=== PATIENT | male | born 1955 | race Caucasian/White ===

== ENCOUNTER 2020-02-20 09:26 | Emergency (ER) | payer OTHER, MEDICARE, BC ==
[2020-02-20] MEDS ORDERED: Ondansetron 4 MG/2 ML SDV IVPUSH ONE (09:44)
[2020-02-20] MEDS ORDERED: HYDROmorphone 1 MG/ML Syringe IVPUSH ONE ×2 (09:44→11:24)
[2020-02-20 09:45] VITALS: BP 146/82; PULSE 63
--- NOTE | 2020-02-20 10:33 | CR ---
PROCEDURE INFORMATION: Exam: XR Left Elbow Exam date and time: 02/20/2020 9:42 AM Age: 64 years old Clinical indication: Injury or trauma; Fall; Blunt trauma (contusions or hematomas); Elbow; Left; Injury date: 02/20/2020; Additional info: Fall off ladder TECHNIQUE: Imaging protocol: XR Left elbow. Views: 1 or 2 views. COMPARISON: No relevant prior studies available. FINDINGS: Bones/joints: There is a distracted intra-articular fracture involving the midportion of the olecranon. Irregular 9 mm ossific density at the radial head is compatible with a fracture. There is a 2.5 cm cranial caudal ossific density adjacent to the medial humeral epicondyle suspicious for large avulsive fracture fragment. Multiple intra-articular fragments identified. Soft tissues: Displaced anterior and posterior fat pads. Moderate soft tissue swelling in the olecranon bursa compatible with probable bursal hematoma or hemorrhage. IMPRESSION: 1. Complex series of fractures involving the midportion olecranon fracture, avulsive fractures identified at the radial head and lateral humeral epicondyle. 2. Intra-articular fracture fragments identified.
--- NOTE | 2020-02-20 10:38 | EDM.PDOC ---
<Chandler Owen - Last Filed: 02/20/20 12:23> ED HPI GENERAL MEDICAL PROBLEM - General Chief Complaint: Upper Extremity Injury/Pain Stated Complaint: FELL DOWN STAIRS AND LANDED ELBOW ON CONRETE Time Seen by Provider: 02/20/20 10:00 - Related Data Allergies Allergy/AdvReac Type Severity Reaction Status Date / Time No Known Allergies Allergy Verified 02/20/20 09:40 Home Meds: Home Meds Albuterol [Ventolin HFA] 2 puff INH BID 04/26/14 [History] Fluticasone/Salmeterol [Advair 250-50 Diskus] 2 puff INH BID 04/26/14 [History] Tiotropium [Spiriva] 2.5 mcg INH BID 04/26/14 [History] Albuterol [Proventil Neb Soln] 2.5 mg NEB Q6H PRN 09/07/15 [History] [id number] Inhibitor [Prolastin C] 1,000 mg IV WEEKLY 09/07/15 [History] Cholecalciferol (Vitamin D3) [Vitamin D3] 1,000 units PO DAILY 09/07/15 [History] LORazepam [Ativan] 1 mg PO DAILY 09/07/15 [History] Multivitamin [Multi-Vitamin Daily] 1 tab PO DAILY 09/07/15 [History] Course - Re-Assessments/Exams Free Text/Narrative Re-Assessment/Exam: 02/20/20 I personally performed or re-performed the physical examination and medical d ecision making. I have verified all student documentation or findings, including history, physical exam and/or medical decision making. Departure - Departure Disposition: Home, Self-Care 01 Clinical Impression: Closed fracture of radius and ulna Qualifiers: Encounter type: initial encounter Laterality: left Qualified Code(s): S52.92XA - Unspecified fracture of left forearm, initial encounter for closed fracture Rib fractures Qualifiers: Encounter type: initial encounter Rib fracture type: multiple ribs Fracture type: closed Laterality: left Qualified Code(s): S22.42XA - Multiple fractures of ribs, left side, initial encounter for closed fracture - Discharge Information Instructions: Acute Compartment Syndrome, Cast or Splint Care, Adult, [id number], Rib Fracture, Ulnar Fracture, Radial Head Fracture Forms: ED Department Discharge Additional Instructions: Call Dr. Cortes's office [phone] to schedule appointment for tomorrow 02/20. RX: Percocet 5/325 mg take one tab every 4 hours as needed for severe pain. Watch for symptoms of compartment syndrome as described in your instructions. Use your Incentive Spirometer every hour while awake. Included are a copy of your EKG, lab results, examination results, x-ray results, and a CD of your xray images. Give these to Dr. Burkett's office. <Ivory Donis - Last Filed: 02/20/20 13:29> ED HPI GENERAL MEDICAL PROBLEM - General Source of Information: Reports: Patient, RN, RN Notes Reviewed History Limitations: Reports: No Limitations - History of Present Illness INITIAL COMMENTS - FREE TEXT/NARRATIVE: pt was at work and carrying boxes up stairs, went to turn around and fell down 5 stair. obvious left elbow deformity, rates pain 9/10. also c/o left rib pain. reports hx of bilateral lung transplant with multiple medications. reports previous covid screens negative. denies any other concerns, denies hitting head with fall, denies trauma to any other area. denies recent illness, chest pain, SOB. denies po intake this am other than water with morning pills. Onset: Today left elbow Pain Score (Numeric/FACES): 7 Past Medical History - Past Health History Medical/Surgical History: Denies Medical/Surgical History HEENT History: Reports: Impaired Vision Respiratory History: Reports: COPD, SOB, Other (See Below) Other Respiratory History: USES HOME OXYGEN THERPAY - NASAL CANULA @ 2L O2; [id number] DEFICIENCY; LUNG TRANSPLANT LIST Musculoskeletal History: Reports: Fracture, Other (See Below) Other Musculoskeletal History: DEXASCAN R/O OSTEOPORISIS ON Psychiatric History: Reports: Anxiety, Depression Do You Give Correction Boluses or Sliding Scale: No Hematologic History: Reports: Other (See Below) Other Hematologic History: [id number] DEFICIENCY - Infectious Disease History Infectious Disease History: Reports: Chicken Pox, Measles, Mumps, Rubella - Past Surgical History HEENT Surgical History: Reports: None Cardiovascular Surgical History: Reports: None Respiratory Surgical History: Reports: None GI Surgical History: Reports: None Male Surgical History: Reports: None Endocrine Surgical History: Reports: None Neurological Surgical History: Reports: None Musculoskeletal Surgical History: Reports: Other (See Below) Other Musculoskeletal Surgeries/Procedures:: RIGHT HAND SURGERY Oncologic Surgical History: Reports: None Dermatological Surgical History: Reports: None Social & Family History - Tobacco Use Tobacco Use Status *Q: Never Tobacco User Second Hand Smoke Exposure: No - Caffeine Use Caffeine Use: Reports: Coffee - Recreational Drug Use Recreational Drug Use: No - Living Situation & Occupation Living situation: Reports: with Family Occupation: Disabled Review of Systems - Review of Systems Review Of Systems: Comprehensive ROS is negative, except as noted in HPI. ED EXAM, GENERAL - Physical Exam Exam: See Below Exam Limited By: No Limitations General Appearance: Alert, WD/WN, Moderate Distress Eye Exam: Bilateral Eye: EOMI, Normal Inspection Ears: Normal External Exam, Hearing Grossly Normal Nose: Normal Inspection, Normal Mucosa, No Blood Throat/Mouth: Normal Inspection Head: Atraumatic, Normocephalic Neck: Normal Inspection, Supple, Non-Tender, Full Range of Motion Respiratory/Chest: No Respiratory Distress, Lungs Clear, Normal Breath Sounds, No Accessory Muscle Use, Chest Non-Tender Cardiovascular: Normal Peripheral Pulses, Regular Rate, Rhythm, No Edema, No Murmur Peripheral Pulses: 3+: Radial (L) GI/Abdominal: Normal Bowel Sounds, Soft, Non-Tender (Male) Exam: Deferred Rectal (Males) Exam: Deferred Back Exam: Normal Inspection, Full Range of Motion Extremities: Normal Inspection, Arm Pain (elbow pain), Limited Range of Motion (left elbow with obvious deformity.) Neurological: Alert, Oriented, Normal Cognition, Normal Gait Psychiatric: Normal Affect, Normal Mood Skin Exam: Warm, Dry, Intact, Normal Color, No Rash Lymphatic: No Adenopathy ED TRAUMA EXTREMITY PROCEDURES - Joint Reduction Left Elbow Sedation: Other (Versed 2 mg) Pre-Procedure NV Status: Normal Post-Procedure NV Status: Normal Technique: Other (closed manual manipulation) Number of Attempts: 1 Post-Reduction Imaging: Acceptably Reduced Joint Reduction Complications: No Course - Vital Signs Last Recorded V/S: Last Vital Signs Temp 97.5 F 02/20/20 09:44 Pulse 63 02/20/20 09:44 Resp 18 02/20/20 09:44 BP 146/82 H 02/20/20 09:44 Pulse Ox 99 02/20/20 09:44 - Orders/Labs/Meds Labs: Laboratory Tests 02/20/20 02/20/20 02/20/20 Range/Units 10:17 11:49 11:49 WBC 8.1 (5.0-10.0) 10^3/uL RBC 4.62 (4.6-6.2) 10^6/uL Hgb 14.9 D (14.0-18.0) g/dL Hct 42.4 (40.0-54.0) % MCV 91.8 (80-100) fL MCH 32.3 (27.0-34.0) pg MCHC 35.1 H (33.0-35.0) g/dL Plt Count 151 D (150-450) 10^3/uL Neut % (Auto) 80.4 H (42.2-75.2) % Lymph % (Auto) 11.2 L (20.5-50.1) % [place] % (Auto) 7.9 (2-8) % Eos % (Auto) 0.1 L (1.0-3.0) % Baso % (Auto) 0.4 (0.0-1.0) % Sodium 134 L (136-145) mmol/L Potassium 3.8 (3.5-5.1) mmol/L Chloride 99 (98-107) mmol/L Carbon Dioxide 29 (21-32) mmol/L Anion Gap 9.8 (7-13) mEq/L BUN 27 H (7-18) mg/dL Creatinine 1.29 (0.70-1.30) mg/dL Est Cr Clr Drug Dosing 58.61 mL/min Estimated GFR (MDRD) 56 BUN/Creatinine Ratio 20.9 (No establ ref range) Glucose 225 H (74-99) mg/dL Calcium 8.7 (8.5-10.1) mg/dL Total Bilirubin 0.9 (0.2-1.0) mg/dL AST 15 (15-37) U/L ALT 24 (16-63) U/L Alkaline Phosphatase 66 (46-116) U/L Total Protein 6.5 (6.4-8.2) g/dL Albumin 3.9 (3.4-5.0) g/dL Globulin 2.6 Albumin/Globulin Ratio 1.5 SARS-CoV-2 RNA (TRINH) Negative (NEGATIVE) Meds: Medications Discontinued Medications Generic Name Dose Route Start Last Admin Trade Name Freq PRN Reason Stop Dose Admin Hydromorphone HCl 1 mg 02/20/20 09:44 02/20/20 09:52 Dilaudid IVPUSH 02/20/20 09:45 1 mg ONETIME ONE Administration Hydromorphone HCl 1 mg 02/20/20 11:24 02/20/20 11:51 Dilaudid IVPUSH 02/20/20 11:25 1 mg ONETIME ONE Administration Midazolam HCl 2 mg 02/20/20 11:40 02/20/20 11:57 Versed 1 Mg/Ml IVPUSH 02/20/20 11:41 2 mg ONETIME ONE Administration Ondansetron HCl 4 mg 02/20/20 09:44 02/20/20 09:52 Zofran IVPUSH 02/20/20 09:45 4 mg ONETIME ONE Administration - Radiology Interpretation Free Text/Narrative:: PROCEDURE INFORMATION: Exam: XR Left Elbow Exam date and time: 02/20/2020 9:42 AM Age: 64 years old Clinical indication: Injury or trauma; Fall; Blunt trauma (contusions or hematomas); Elbow; Left; Injury date: 02/20/2020; Additional info: Fall off ladder TECHNIQUE: Imaging protocol: XR Left elbow. Views: 1 or 2 views. COMPARISON: No relevant prior studies available. FINDINGS: Bones/joints: There is a distracted intra-articular fracture involving the midportion of the olecranon. Irregular 9 mm ossific density at the radial head is compatible with a fracture. There is a 2.5 cm cranial caudal ossific density adjacent to the medial humeral epicondyle suspicious for large avulsive fracture fragment. Multiple intra-articular fragments identified. Soft tissues: Displaced anterior and posterior fat pads. Moderate soft tissue swelling in the olecranon bursa compatible with probable bursal hematoma or hemorrhage. IMPRESSION: 1. Complex series of fractures involving the midportion olecranon fracture, avulsive fractures identified at the radial head and lateral humeral epicondyle. 2. Intra-articular fracture fragments identified. Dictated and Authenticated by: Danni Roque MD 02/20/2020 10:33 AM Central Time ([place] & [place]) PROCEDURE INFORMATION: Exam: XR Left Ribs with PA Chest, 3 Views Exam date and time: 02/20/2020 9:56 AM Age: 64 years old Clinical indication: Injury or trauma; Fall; Rib area, left side; Blunt trauma; Injury date: 02/20/2020; Additional info: Fell off ladder TECHNIQUE: Imaging protocol: XR Left ribs 3 views with PA chest. COMPARISON: CR Chest 1V Frontal 04/26/2014 7:04 PM FINDINGS: Lungs: There is minimal left retrocardiac density and linear densities. Mild left lung volume loss is identified. Pleural space: There is no pneumothorax. Heart/Mediastinum: Median sternotomy distal cerclage wires and sutures are compatible with prior cardiac surgery or CABG. Mediastinal contour is unremarkable. There is mild cardiomegaly. Bones/joints: There are findings consistent with nondisplaced left 4th, 5th and 6th rib fractures. There is a chronically healing left posterolateral 10th rib fracture. IMPRESSION: 1. Left 4th, 5th and 6th nondisplaced rib fractures. Chronically healing left 10th rib fracture. 2. Mild cardiomegaly. 3. Probable left lower lobe contusion and atelectasis. Dictated and Authenticated by: Danni Roque MD 02/20/2020 10:43 AM Central Time ([place] & [place]) - Re-Assessments/Exams Free Text/Narrative Re-Assessment/Exam: 1015 one call notified, images pushed 1104 one call states they have not rcd images, images pushed a total of 3 times sinice initial call [phone] called one call for confirmation of image reciept, no answer [phone] call rc'd, images rc'd by [employer] [phone] Dr. Yates calls, recommends reduction of fracture, long arm splint, follow-up in clinic tomorrow, plan for outpatient surgery thursday. 02/20/20 11:38 Departure - Departure Time of Disposition: 13:29 - Discharge Information *PRESCRIPTION DRUG MONITORING PROGRAM REVIEWED*: No *COPY OF PRESCRIPTION DRUG MONITORING REPORT IN PATIENT SHELLIE: No Sepsis Event Note (ED) - Evaluation Sepsis Screening Result: No Definite Risk - Focused Exam Vital Signs: Vital Signs Temp Pulse Resp BP Pulse Ox 02/20/20 09:44 97.5 F 64 18 146/82 H 99
--- NOTE | 2020-02-20 10:43 | CR ---
PROCEDURE INFORMATION: Exam: XR Left Ribs with PA Chest, 3 Views Exam date and time: 02/20/2020 9:56 AM Age: 64 years old Clinical indication: Injury or trauma; Fall; Rib area, left side; Blunt trauma; Injury date: 02/20/2020; Additional info: Fell off ladder TECHNIQUE: Imaging protocol: XR Left ribs 3 views with PA chest. COMPARISON: CR Chest 1V Frontal 04/26/2014 7:04 PM FINDINGS: Lungs: There is minimal left retrocardiac density and linear densities. Mild left lung volume loss is identified. Pleural space: There is no pneumothorax. Heart/Mediastinum: Median sternotomy distal cerclage wires and sutures are compatible with prior cardiac surgery or CABG. Mediastinal contour is unremarkable. There is mild cardiomegaly. Bones/joints: There are findings consistent with nondisplaced left 4th, 5th and 6th rib fractures. There is a chronically healing left posterolateral 10th rib fracture. IMPRESSION: 1. Left 4th, 5th and 6th nondisplaced rib fractures. Chronically healing left 10th rib fracture. 2. Mild cardiomegaly. 3. Probable left lower lobe contusion and atelectasis.
[2020-02-20] MEDS ORDERED: Midazolam 1 MG/ML 2 ML SDV IVPUSH ONE (11:40)
[2020-02-20 12:14] LABS: ANION GAP 9.8 mEq/L (7-13)
--- NOTE | 2020-02-20 13:16 | CR ---
EXAMINATION: Elbow 2V Rt SEX: Male AGE: 64 years CLINICAL HISTORY: 64-year-old male post-reduction complicated left elbow fracture. INTERPRETATION: 1. Posterior splint. No other foreign bodies. 2. Diastases underlying olecranon fracture fragment but reasonable alignment with proximal ulna. 3. Diastases radial head fracture fragment which also appears to be reasonably aligned proximal radius. 4. Smoothly corticated osseous fragment immediately adjacent to the lateral epicondyle distal humerus. 5. Pronounced soft tissue swelling around the elbow. Large elbow joint effusion (elevated "fat pads"). 6. No free subcutaneous air. CONCLUSION: Large joint effusion; multiple elbow fractures; no dislocation.
== END 2020-02-20 13:24 | disposition home or self-care (01) ==
LOC: DL.ED 09:26
DX: S22.42XA Multiple fractures of ribs, left side, initial encounter for closed fracture (principal); S52.022A Displaced fracture of olecranon process without intraarticular extension of left ulna, initial encounter for closed fracture; S52.122A Displaced fracture of head of left radius, initial encounter for closed fracture; J44.9 Chronic obstructive pulmonary disease, unspecified; F41.9 Anxiety disorder, unspecified; F32.9 Major depressive disorder, single episode, unspecified; Z20.828 Contact with and (suspected) exposure to other viral communicable diseases; Z79.899 Other long term (current) drug therapy; W10.9XXA Fall (on) (from) unspecified stairs and steps, initial encounter; Y99.0 Civilian activity done for income or pay
CPT/HCPCS: 24655; 36415; 71101-LT; 73070-LT; 73070-RT; 80053; 85025; 93005; 94010; 96374; 96375; 96376; 99284; 99284-25; J1170; J2250; J2405; U0002

== ENCOUNTER 2020-03-08 08:47 | Emergency (ER) | payer OTHER, MEDICARE, BC ==
[2020-03-08 08:55] VITALS: BP 175/99; PULSE 88
--- NOTE | 2020-03-08 09:53 | EDM.PDOC ---
ED HPI GENERAL MEDICAL PROBLEM - General Chief Complaint: Upper Extremity Injury/Pain Stated Complaint: PRIOR SURGERY LEFT ARM PAIN Time Seen by Provider: 03/08/20 09:34 Source of Information: Reports: Patient, RN History Limitations: Reports: No Limitations - History of Present Illness INITIAL COMMENTS - FREE TEXT/NARRATIVE: 64 year-old gentleman who presents to the ER for increased pain two weeks post elbow surgery for an ulna and radial fracture. Patient states he was seen by the surgery four days ago and told to use Tylenol prn. Patient reports pain is a 7/10 with Tylenol 1000 mg and 10/10 at worst. He did admit the wound is healing appropriately but the pain is keeping him awake at night. He denies any recent injury, fall, trauma, fever/chills. He also denies any drainage, redness or warm. Left Hand Pain Score (Numeric/FACES): 7 - Related Data Allergies Allergy/AdvReac Type Severity Reaction Status Date / Time No Known Allergies Allergy Verified 03/08/20 08:55 Home Meds: Home Meds Albuterol [Ventolin HFA] 2 puff INH BID PRN 04/26/14 [History] Cholecalciferol (Vitamin D3) [Vitamin D3] 1,000 units PO DAILY 09/07/15 [History] Multivitamin [Multi-Vitamin Daily] 1 tab PO DAILY 09/07/15 [History] Metoprolol Succinate 50 mg PO DAILY 03/08/20 [History] Tamsulosin HCl 0.4 mg PO DAILY 03/08/20 [History] Past Medical History - Past Health History Medical/Surgical History: Denies Medical/Surgical History HEENT History: Reports: Cataract, Impaired Vision Cardiovascular History: Reports: Hypertension Respiratory History: Reports: COPD, SOB, Other (See Below) Other Respiratory History: USES HOME OXYGEN THERPAY - NASAL CANULA @ 2L O2; [id number] DEFICIENCY; LUNG TRANSPLANT LIST Musculoskeletal History: Reports: Fracture, Other (See Below) Other Musculoskeletal History: DEXASCAN R/O OSTEOPORISIS ON Psychiatric History: Reports: Anxiety, Depression Hematologic History: Reports: Other (See Below) Other Hematologic History: [id number] DEFICIENCY - Infectious Disease History Infectious Disease History: Reports: Chicken Pox, Measles, Mumps, Rubella - Past Surgical History HEENT Surgical History: Reports: None Cardiovascular Surgical History: Reports: None Respiratory Surgical History: Reports: Other (See Below) Other Respiratory Surgeries/Procedures: double lung transplant dec 2015 GI Surgical History: Reports: None Male Surgical History: Reports: None Endocrine Surgical History: Reports: None Neurological Surgical History: Reports: None Musculoskeletal Surgical History: Reports: Other (See Below) Other Musculoskeletal Surgeries/Procedures:: RIGHT HAND SURGERY, left elbow surgery Oncologic Surgical History: Reports: None Dermatological Surgical History: Reports: None Social & Family History - Tobacco Use Tobacco Use Status *Q: Never Tobacco User Second Hand Smoke Exposure: No - Caffeine Use Caffeine Use: Reports: Coffee - Recreational Drug Use Recreational Drug Use: No - Living Situation & Occupation Living situation: Reports: with Family Occupation: Disabled Review of Systems - Review of Systems Review Of Systems: Comprehensive ROS is negative, except as noted in HPI. ED EXAM, GENERAL - Physical Exam Exam: See Below Exam Limited By: No Limitations General Appearance: Alert, Moderate Distress Respiratory/Chest: No Respiratory Distress, Lungs Clear, Normal Breath Sounds, No Accessory Muscle Use, Chest Non-Tender Cardiovascular: Normal Peripheral Pulses, Regular Rate, Rhythm, No Edema, No Gallop, No JVD, No Murmur, No Rub Peripheral Pulses: 2+: Radial (L), Radial (R), Posterior Tibial (R) Extremities: Limited Range of Motion (of the left arm due to pain and recent surgery. No increase redness, warm or drainage noted. Surgical scar noted on the elbow.) Neurological: Alert, Oriented Psychiatric: Normal Affect Skin Exam: Dry, Intact Lymphatic: No Adenopathy Course - Vital Signs Last Recorded V/S: Last Vital Signs Temp 97.7 F 03/08/20 08:50 Pulse 88 03/08/20 08:50 Resp 18 03/08/20 08:50 BP 175/99 H 03/08/20 08:50 Pulse Ox 100 03/08/20 08:50 - Re-Assessments/Exams Free Text/Narrative Re-Assessment/Exam: reviewed exam findings with patient. Left elbow surgical site healing appropriately. No drainage, redness, warmth noted at this time. Patient was given a prescription for Percocet5-325 mg BID as needed for 5 days. He will follow-up with his PCP on Thursday, March 12, 2020 when the clinic opens. Encouraged to continue keeping surgical site clean and dry. Follow up with PT as recommended by surgeon. 03/08/20 12:58 Departure - Departure Time of Disposition: 09:48 Disposition: Home, Self-Care 01 Condition: Fair Clinical Impression: Elbow pain, left Fracture of radius and ulna Qualifiers: Encounter type: sequela Fracture type: closed Laterality: left Qualified Code(s): S52.92XS - Unspecified fracture of left forearm, sequela - Discharge Information Instructions: How to Use Cold Therapy, [id number], How To Use a Sling, [id number] Forms: ED Department Discharge Additional Instructions: follow-up with PCP as recommended. Additional instructions included in the AVS. Sepsis Event Note (ED) - Evaluation Sepsis Screening Result: No Definite Risk - Focused Exam Vital Signs: Vital Signs Temp Pulse Resp BP Pulse Ox 03/08/20 08:50 97.7 F 88 18 175/99 H 100
== END 2020-03-08 10:00 | disposition home or self-care (01) ==
LOC: DL.ED 08:47
DX: S52.92XD Unspecified fracture of left forearm, subsequent encounter for closed fracture with routine healing (principal); S52.202D Unspecified fracture of shaft of left ulna, subsequent encounter for closed fracture with routine healing; I10 Essential (primary) hypertension; J44.9 Chronic obstructive pulmonary disease, unspecified; Z79.899 Other long term (current) drug therapy; Z99.81 Dependence on supplemental oxygen; X58.XXXA Exposure to other specified factors, initial encounter
CPT/HCPCS: 99283